=== PATIENT | male | born 1995 | race Caucasian/White ===

== ENCOUNTER 2019-10-05 13:36 | Emergency (ER) | payer OTHER ==
[2019-10-05 13:50] VITALS: BP 141/92
--- NOTE | 2019-10-05 14:21 | XRAY Report ---
Reason: cough Procedure Date: 10/05/2019 Accession Number: [id number] / [id number] Procedure: XR - Chest 2 View X-Ray CPT Code: 59953 Final Report FULL RESULT: EXAM: CHEST RADIOGRAPHY EXAM DATE: 10/05/2019 02:13 PM. CLINICAL HISTORY: Cough. COMPARISON: None. TECHNIQUE: 2 views. FINDINGS: Lungs/Pleura: No focal opacities evident. No pleural effusion. No pneumothorax. Normal volumes. Mediastinum: Heart and mediastinal contours are unremarkable. Other: None. IMPRESSION: No acute intrathoracic plain film abnormality. RADIA
--- NOTE | 2019-10-05 14:26 | ED Physician Documentation ---
PD HPI URI - Stated complaint Stated Complaint: SOA - Chief complaint Chief Complaint: Resp - History obtained from History obtained from: Patient - History of Present Illness Timing - onset: How many days ago Timing duration: Days (10-12) Timing details: Gradual onset, Still present (10 to 12 days worsening the last several days) Associated symptoms: Chills, Productive cough, Dyspnea. No: Fever Review of Systems Constitutional: reports: Chills, Myalgias. denies: Fever Nose: reports: Congestion. denies: Sinus pressure / pain Throat: denies: Sore throat Cardiac: reports: Chest pain / pressure (anteriorly with coughing). denies: Palpitations Respiratory: reports: Dyspnea, Cough GI: denies: Nausea, Vomiting, Diarrhea Skin: denies: Rash Neurologic: reports: Generalized weakness. denies: Focal weakness, Numbness, Near syncope PD PAST MEDICAL HISTORY - Past Medical History Cardiovascular: None Respiratory: None Neuro: None Endocrine/Autoimmune: None - Present Medications Home Medications: Ambulatory Orders Medication Instructions Recorded Confirmed Albuterol Sulfate [Albuterol 2 puffs IH QID #1 hfa.aer.ad 10/05/19 Sulfate Hfa] Benzonatate [Tessalon Perle] 100 - 200 mg PO TID PRN #30 capsule 10/05/19 Doxycycline Monohydrate 100 mg PO BID #14 tablet 10/05/19 dexAMETHasone [Decadron] 4 mg PO DAILY #5 tablet 10/05/19 - Allergies Allergies/Adverse Reactions: Allergies Allergy/AdvReac Type Severity Reaction Status Date / Time kiwi Allergy Anaphylaxis Verified 10/05/19 13:44 PD ED PE NORMAL - Vitals Vital signs reviewed: Yes - General General: Alert and oriented X 3, No acute distress, Well developed/nourished - HEENT HEENT: Pharynx benign - Neck Neck: Supple, no meningeal sign, No adenopathy - Cardiac Cardiac: RRR, No murmur - Respiratory Respiratory: Clear bilaterally - Abdomen Abdomen: Soft, Non tender - Derm Derm: Normal color, Warm and dry - Neuro Neuro: Alert and oriented X 3, No motor deficit, Normal speech Results - Vitals Vitals: Oxygen O2 Source Room air - Rads (name of study) chest xray Radiology: Prelim report reviewed (no infiltrates) PD MEDICAL DECISION MAKING - ED course Complexity details: considered differential (given prolonged course of URI and now productive cough, consider bacterial extension at this point. ), d/w patient Departure - Departure Disposition: 01 Home, Self Care Clinical Impression: Upper respiratory infection Qualifiers: URI type: unspecified URI Qualified Code(s): J06.9 - Acute upper respiratory infection, unspecified Acute bronchitis Qualifiers: Bronchitis organism: unspecified organism Qualified Code(s): J20.9 - Acute b ronchitis, unspecified Condition: Stable Record reviewed to determine appropriate education?: Yes Instructions: ED Upper Resp Infec Abx Tx Prescriptions: Albuterol Sulfate [Albuterol Sulfate Hfa] 2 puffs IH QID #1 hfa.aer.ad Benzonatate [Tessalon Perle] 100 - 200 mg PO TID PRN #30 capsule PRN Reason: Cough dexAMETHasone [Decadron] 4 mg PO DAILY #5 tablet Doxycycline Monohydrate 100 mg PO BID #14 tablet Comments: Stay well-hydrated. Albuterol inhaler 2 puffs 4 times a day to help with breathing and reduce cough. Decadron steroid anti-inflammatory daily for 5 more days to reduce irritation in the bronchials. Doxycycline antibiotic twice daily for a week for potential bacterial component of the infection. Tessalon if needed for cough suppression. Recheck if not improving well over the next several days and resolved by a week. Discharge Date/Time: 10/05/19 16:25
[2019-10-05] MEDS ORDERED: ALBUTEROL NEB 2.5 MG/3 ML INH STA (14:54)
[2019-10-05] MEDS ORDERED: CHERRY SYRUP 10 ML UDC PO ONE (14:55)
[2019-10-05] MEDS ORDERED: BENZONATATE 100 MG CAPSULE PO STA (14:55)
[2019-10-05] MEDS ORDERED: DEXAMETHASONE 10 MG/ML VIAL PO STA (14:55)
== END 2019-10-05 16:25 | disposition home or self-care (01) ==
LOC: ED 13:36
DX: J06.9 Acute upper respiratory infection, unspecified (principal); J20.9 Acute bronchitis, unspecified
CPT/HCPCS: 71046; 94640; 99283; A9270

== ENCOUNTER 2021-02-26 14:01 | Emergency (ER) | payer OTHER ==
[2021-02-26 14:14] VITALS: BP 137/97
--- NOTE | 2021-02-26 15:19 | ED Physician Documentation ---
History of Present Illness - Stated complaint Stated Complaint: DIARRHEA,CHILLS - Chief complaint Chief Complaint: Abd Pain - History obtained from History obtained from: Patient - Additonal information Additional information: Patient comes emergency department chief complaint of having diarrhea since last night. He states that nobody else who ate the same food is him is sick. He began to have frequent, runny stool around 1900 yesterday but as the night progressed, stools became more frequent and a greenish, watery consistency. Patient states that he has not had any fevers or chills. No nausea, vomiting, or abdominal pain. He denies any new medications. No antibiotics anytime recently. No intestinal disorders that he knows of. Patient states he is concerned because his dog keeps bringing back animals and that he picked up a bird yesterday that was freshly killed and did not wear any gloves. He tossed into the bushes and then immediately went back to working on his car. He states that he picked up a wrench right then and put it in his mouth to hold with his teeth while he did some other things with both hands. He is sure that there must of been some bacteria on there from the animal that got into his system and has caused his diarrhea. No other complaints at this time. Review of Systems Ten Systems: 10 systems reviewed and negative Constitutional: reports: Reviewed and negative Eyes: reports: Reviewed and negative Ears: reports: Reviewed and negative Nose: reports: Reviewed and negative Throat: reports: Reviewed and negative Cardiac: reports: Reviewed and negative Respiratory: reports: Reviewed and negative GI: reports: Diarrhea : reports: Reviewed and negative Skin: reports: Reviewed and negative Musculoskeletal: reports: Reviewed and negative Neurologic: reports: Reviewed and negative Psychiatric: reports: Reviewed and negative Endocrine: reports: Reviewed and negative Immunocompromised: reports: Reviewed and negative PD PAST MEDICAL HISTORY - Past Medical History Cardiovascular: None Respiratory: None Neuro: None Endocrine/Autoimmune: None GI: Diverticulitis : None HEENT: None Psych: None Musculoskeletal: Osteoarthritis, Other Derm: None - Past Surgical History Past Surgical History: Yes General: Appendectomy, Bowel surgery - Present Medications Home Medications: Ambulatory Orders Medication Instructions Recorded Confirmed Loperamide [Imodium] 2 mg PO QID PRN #6 02/26/21 - Allergies Allergies/Adverse Reactions: Allergies Allergy/AdvReac Type Severity Reaction Status Date / Time kiwi Allergy Anaphylaxis Verified 02/26/21 14:11 - Social History Does the pt smoke?: Yes Smoking Status: Former smoker Does the pt drink ETOH?: Yes Does the pt have substance abuse?: No - Immunizations Immunizations are current?: Yes - POLST Patient has POLST: No PD ED PE NORMAL - Vitals Vital signs reviewed: Yes - General General: Alert and oriented X 3, No acute distress, Well developed/nourished - HEENT HEENT: Atraumatic, PERRL, EOMI, Moist mucous membranes - Neck Neck: Supple, no meningeal sign - Cardiac Cardiac: RRR, No murmur - Respiratory Respiratory: No respiratory distress, Clear bilaterally - Abdomen Abdomen: Soft, Non tender, Non distended - Derm Derm: Normal color, Warm and dry, No rash - Extremities Extremities: No deformity, No edema - Neuro Neuro: Alert and oriented X 3 - Psych Psych: Normal mood, Normal affect Results - Vitals Vitals: Vital Signs - 24 hr 02/26/21 14:12 Temperature 36.1 C L Heart Rate 84 Respiratory 16 Rate Blood Pressure 137/97 H O2 Saturation 99 Oxygen O2 Source Room air PD MEDICAL DECISION MAKING - ED course Complexity details: reviewed results, re-evaluated patient, considered differential, d/w patient ED course: I discussed with the patient that it is currently unlikely that he has diarrhea because of touching the bird. I discussed with him that most likely the the diarrhea is caused by a virus and will ultimately resolve on its own. The patient does not have any other medical history or a symptoms to indicate a more serious etiology. I did come patient that if he can give us a sample, we can send it off for culture though I do not suspect bacterial diarrhea or C. diffi cile to be the likely cause. Patient states he did take Pepto-Bismol earlier today and it seemed to help. I discussed with him that he may continue to take this if he finds it helpful. Stool cx is pending at this time. Departure - Departure Disposition: 01 Home, Self Care Clinical Impression: Diarrhea Qualifiers: Diarrhea type: infectious Qualified Code(s): A09 - Infectious gastroenteritis and colitis, unspecified Condition: Stable Instructions: ED Diet Vomiting Diarrhea Prescriptions: Loperamide [Imodium] 2 mg PO QID PRN #6 PRN Reason: Diarrhea Discharge Date/Time: 02/26/21 16:14
== END 2021-02-26 16:14 | disposition home or self-care (01) ==
LOC: ED 14:01
DX: A09 Infectious gastroenteritis and colitis, unspecified (principal); Z87.891 Personal history of nicotine dependence
CPT/HCPCS: 81599; 87045; 87046; 87449; 99283; 99284